=== PATIENT | male | born 1980 | race Caucasian/White ===

== ENCOUNTER 2019-01-23 19:15 | Emergency (ER) | payer OTHER ==
[~2019-01-23] VITALS: Ht 180.3 cm; Wt 81.7 kg
[2019-01-23] MEDS ORDERED: PREDNISONE 20 M20 M1 PO (21:06)
[2019-01-23] MEDS ORDERED: TESSALON PERLE100 MG PO (21:06)
[2019-01-23] MEDS ORDERED: PROAIR HFA8.5 GM INH (21:06)
[2019-01-23 21:29] VITALS: BP 120/68
== END 2019-01-23 21:30 | disposition home or self-care (01) ==
LOC: M.ERS 19:15
DX: J20.9 Acute bronchitis, unspecified (principal); F17.210 Nicotine dependence, cigarettes, uncomplicated